=== PATIENT | male | born 1990 | race Caucasian/White ===

== ENCOUNTER 2017-09-23 16:15 | Emergency (ER) | payer SELFPAY ==
[~2017-09-23] VITALS: Ht 180.3 cm; Wt 81.8 kg
[2017-09-23 16:33] VITALS: BP 140/77
--- NOTE | 2017-09-23 17:52 | NUR ---
pt ambulated to chair c
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
--- NOTE | 2017-09-23 20:25 | NUR ---
Dr. Alvarado evaluating patient.
--- NOTE | 2017-09-23 21:08 | NUR ---
PT LEFT TO RADIOLOGY VIA WC, ACCOMPANIED BY STUDENT FINANCE SPECIALIST
--- NOTE | 2017-09-23 21:35 | NUR ---
Patient discharged with v/s stable. Written and verbal after care instructions given and explained. Patient alert, oriented and verbalized understanding of instructions. Ambulatory with steady gait. All questions addressed prior to discharge. ID band removed. Patient advised to follow up with PMD. Rx of FLEXERIL 5MG, MOTRIN 600MG AND NORCO 5/325MG given. Patient educated on indication of medication including possible reaction and side effects. Opportunity to ask questions provided and answered.
[2017-09-23 21:36] VITALS: BP 122/71
--- NOTE | 2017-09-24 14:07 | NUR ---
ADDENDUM: CALL FROM SHANNON FROM [facility] CERVICAL SPINE XR. REFERRED AND REVIEWED BY DR. MEJIA. NO FARTHER TX NEEDED
== END 2017-09-23 21:35 | disposition home or self-care (01) ==
LOC: MED 16:15
DX: S13.4XXA Sprain of ligaments of cervical spine, initial encounter (principal); V49.40XA Driver injured in collision with unspecified motor vehicles in traffic accident, initial encounter; Y93.89 Activity, other specified; Y92.89 Other specified places as the place of occurrence of the external cause; Y99.8 Other external cause status
CPT/HCPCS: 72050; 99284